=== PATIENT | female | born 1975 | race Hispanic/Latino ===

== ENCOUNTER 2018-11-21 18:05 | Emergency (ER) | payer OTHER | END 2018-11-21 18:40 | disposition home or self-care (01) | LOC: EDH 18:05 | DX: L30.9 Dermatitis, unspecified (principal); I10 Essential (primary) hypertension; K21.9 Gastro-esophageal reflux disease without esophagitis; Z91.041 Radiographic dye allergy status; Z90.710 Acquired absence of both cervix and uterus ==